=== PATIENT | female | born 1965 | race Caucasian/White ===

== ENCOUNTER 2016-07-18 11:49 | Emergency (ER) | payer OTHER ==
[2016-07-18 12:05] VITALS: BMI 21.9
[2016-07-18] MEDS ORDERED: PANTOPRAZOLE SODIUM 100 ML IVPB ONE (17:20)
[2016-07-18] MEDS ORDERED: SODIUM CHLORIDE 1,000 ML IV STA ×2 (17:20→17:21)
[2016-07-18] MEDS ORDERED: ONDANSETRON 4 MG/2 ML VIAL IVPUSH ONE (17:21)
[2016-07-18] MEDS ORDERED: PANTOPRAZOLE SODIUM 40 MG in SODIUM CHLORIDE 100 ML IVPB ONE (17:21)
[2016-07-18 17:43] LABS: BASOPHIL 0.2 % (0-2.0); EOSINOPHIL 0.2 % (0-4.5); MCH 30.2 pg (25.7-33.7); MCHC 33.9 g/dl (32.0-36.0); MEAN CELL VOLUME 89.3 fl (80-96); MEAN PLT VOLUME 7.7 fl (7.5-11.1); NEUTROPHILS 77.7 % (42.8-82.8); PLATELET COUNT 309 K/MM3 (134-434); RDW 12.6 % (11.6-15.6); WHITE BLOOD COUNT 6.5 K/mm3 (4.0-10.0)
--- NOTE | 2016-07-18 17:58 | PDOC ---
History of Present Illness - General History Source: Patient Exam Limitations: No Limitations - History of Present Illness Initial Comments: 07/18/16 17:53 50 year old female sent in by Dr. Ed Stover for, nausea, fever and chills. As per patient she was tested positive for influenza yesterday and was told to rest take NSAIDs and eat small frequent meals. Patient states has not been able to tolerate for the past 4 days eating only small bits of crackers and sips of water. Patient states is having brown watery stool immediately following by mouth intake. Patient denies headache, neck stiffness, difficulty swallowing, throat pain, chest pain, shortness of breath or palpitations. Patient states history of acid reflux and is currently on Zantac and Lopressor for hypertension. Timing/Duration: intermittent Severity: moderate Associated Symptoms: reports: cough, fever/chills, nausea/vomiting, weakness <Trudy Meza - Last Filed: 07/18/16 17:52> <Annette Moore - Last Filed: 07/18/16 20:48> - General Chief Complaint: Weakness Stated Complaint: WEAKNESS, ABD PAIN (PCP SENT) Time Seen by Provider: 07/18/16 14:59 Past History - Past Medical History Anemia: No Asthma: No Cancer: No Cardiac Disorders: No CVA: No COPD: No CHF: No Dementia: No Diabetes: No GI Disorders: Yes Disorders: No HTN: Yes Hypercholesterolemia: No Liver Disease: No Seizures: No Thyroid Disease: No - Surgical History Abdominal Surgery: No Appendectomy: No Cardiac Surgery: No Cholecystectomy: No Lung Surgery: No Neurologic Surgery: No Orthopedic Surgery: No - Psycho/Social/Smoking Cessation Hx Suicidal Ideation: No Smoking History: Never smoked Information on smoking cessation initiated: No Hx Alcohol Use: Yes Drug/Substance Use Hx: No Substance Use Type: None Hx Substance Use Treatment: No Patient Lives Alone: No Lives with/in: spouse/SO <Trudy Meza - Last Filed: 07/18/16 17:52> <Annette Moore - Last Filed: 07/18/16 20:48> - Past Medical History Allergies/Adverse Reactions: Allergies Allergy/AdvReac Type Severity Reaction Status Date / Time aspirin AdvReac Verified 07/18/16 12:05 Penicillins AdvReac Verified 07/18/16 12:05 Home Medications: Ambulatory Orders Acetaminophen W/ Codeine Liq [Tylenol W/Codeine Oral Solution -] 5 ml PO Q6H PRN #120 ml MDD 20 mLs 07/18/16 Diphenoxylate HCl/Atropine [Lomotil Tablet] 1 each PO BID PRN #4 tablet MDD 2 tabs 07/18/16 Metoprolol Tartrate [Lopressor -] 25 mg PO DAILY 07/18/16 Oseltamivir Phosphate [Tamiflu -] 75 mg PO BID #10 capsule 07/18/16 Ranitidine [Zantac -] 150 mg PO DAILY 07/18/16 Review of Systems - Review of Systems Able to Perform ROS?: Yes Constitutional: Yes: Chills, Loss of Appetite, Weakness (mild) HEENTM: No: Symptoms Reported Respiratory: Yes: Cough Cardiac (ROS): No: Symptoms Reported ABD/GI: Yes: Diarrhea, Nausea, Indigestion : No: Symptoms Reported Musculoskeletal: No: Symptoms Reported Integumentary: No: Symptoms Reported Neurological: No: Symptoms reported Endocrine: No: Symptoms Reported Hematologic/Lymphatic: No: Symptoms Reported <Trudy Meza - Last Filed: 07/18/16 17:52> *Physical Exam - Vital Signs Last Vital Signs Temp Pulse Resp BP Pulse Ox 98.3 F 100 H 18 118/76 97 07/18/16 12:01 07/18/16 12:01 07/18/16 12:01 07/18/16 12:01 07/18/16 12:01 - Physical Exam General Appearance: Yes: Nourished, Appropriately Dressed. No: Apparent Distress HEENT: positive: EOMI, AYLA. negative: Pale Conjunctivae Neck: positive: Supple Respiratory/Chest: positive: Lungs Clear, Normal Breath Sounds. negative: Respiratory Distress, Accessory Muscle Use Cardiovascular: positive: Regular Rhythm, Tachycardia. negative: Murmur Gastrointestinal/Abdominal: positive: Normal Bowel Sounds, Soft, Tenderness ( epigastric). negative: Distended Musculoskeletal: negative: CVA Tenderness Extremity: positive: Normal Capillary Refill. negative: Pedal Edema Integumentary: positive: Normal Color, Warm, Moist Neurologic: positive: Motor Strength 5/5 <Trudy Meza - Last Filed: 07/18/16 17:52> - Vital Signs Last Vital Signs Temp Pulse Resp BP Pulse Ox 98.3 F 100 H 18 118/76 97 07/18/16 12:01 07/18/16 12:01 07/18/16 12:01 07/18/16 12:01 07/18/16 12:01 <Annette Moore - Last Filed: 07/18/16 20:48> Heart Score/ECG Review - ECG Impressions Normal ECG: Yes Non-specific ST Elevation: No Ischemic Changes: No Bradycardia: No Tachycardia: Sinus Torsades kaelyn Pointes: No WPW: No Comment:: 07/18/16 19:39 Otherwise normal ECG. <Annette Moore - Last Filed: 07/18/16 20:48> ED Treatment Course - LABORATORY CBC & Chemistry Diagram: 07/18/16 17:20 07/18/16 17:20 - ADDITIONAL ORDERS Additional order review: 07/18/16 17:20 RBC 4.69 MCV 89.3 MCHC 33.9 RDW 12.6 MPV 7.7 Neutrophils % 77.7 Lymphocytes % 11.2 Monocytes % 10.7 H Eosinophils % 0.2 Basophils % 0.2 - Medications Given in the ED: ED Medications Discontinued Medications Generic Name Dose Route Start Last Admin Trade Name Freq PRN Reason Stop Dose Admin Pantoprazole Sodium 40 mg/ 100 mls @ 200 mls/hr 07/18/16 17:21 07/18/16 17:40 Sodium Chloride IVPB 07/18/16 17:50 200 mls/hr ONCE ONE Administration Ondansetron HCl 4 mg 07/18/16 17:21 07/18/16 17:40 Zofran Injection IVPUSH 07/18/16 17:22 4 mg ONCE ONE Administration <Trudy Meza - Last Filed: 07/18/16 17:52> - LABORATORY CBC & Chemistry Diagram: 07/18/16 17:20 07/18/16 17:20 - ADDITIONAL ORDERS Additional order review: Laboratory Results 07/18/16 07/18/16 07/18/16 17:30 17:20 17:20 Sodium 136 Potassium 3.7 Chloride 100 Carbon Dioxide 24 Anion Gap 12 BUN 13 D Creatinine 0.7 Creat Clearance w eGFR > 60 Random Glucose 74 Lactic Acid 1.294 Calcium 9.0 Total Bilirubin 0.5 D AST 20 D ALT 20 Alkaline Phosphatase 82 Total Protein 8.2 Albumin 4.4 Urine Color Yellow Urine Appearance Clear Urine pH 5.0 Ur Specific Section 1.026 Urine Protein 1+ H Urine Glucose (UA) Negative Urine Ketones 2+ H Urine Blood Negative Urine Nitrite Negative Urine Bilirubin Negative Urine Urobilinogen Negative Ur Leukocyte Esterase Negative 07/18/16 17:20 RBC 4.69 MCV 89.3 MCHC 33.9 RDW 12.6 MPV 7.7 Neutrophils % 77.7 Lymphocytes % 11.2 Monocytes % 10.7 H Eosinophils % 0.2 Basophils % 0.2 - Medications Given in the ED: ED Medications Discontinued Medications Generic Name Dose Route Start Last Admin Trade Name Freq PRN Reason Stop Dose Admin Pantoprazole Sodium 40 mg/ 100 mls @ 200 mls/hr 07/18/16 17:21 07/18/16 17:40 Sodium Chloride IVPB 07/18/16 17:50 200 mls/hr ONCE ONE Administration Sodium Chloride 1,000 mls @ 1,000 mls/hr 07/18/16 17:20 07/18/16 17:40 Normal Saline - IV 07/18/16 18:19 1,000 mls/hr ASDIR STA Administration Ondansetron HCl 4 mg 07/18/16 17:21 07/18/16 17:40 Zofran Injection IVPUSH 07/18/16 17:22 4 mg ONCE ONE Administration <Annette Moore - Last Filed: 07/18/16 20:48> Medical Decision Making - Medical Decision Making 07/18/16 17:08 Pt with n/v/d/fever x 4 days. Pt tested + for influenza. Pt tachycardia. Pt ordered for septic workup. Pt ordered for IVF, zofran, and protonix. 07/18/16 18:05 Laboratory Tests 07/18/16 17:20 WBC 6.5 Hgb 14.2 Hct 41.8 Neutrophils % 77.7 Monocytes % 10.7 H <Trudy Meza - Last Filed: 07/18/16 17:52> *DC/Admit/Observation/Transfer <Trudy Meza - Last Filed: 07/18/16 17:52> - Discharge Dispostion Admit: No <Annette Moore - Last Filed: 07/18/16 20:48> Diagnosis at time of Disposition: Influenza, Gastroenteritis - Discharge Dispostion Disposition: HOME Condition at time of disposition: Improved - Prescriptions Prescriptions: Diphenoxylate HCl/Atropine [Lomotil Tablet] 1 each PO BID PRN #4 tablet MDD 2 tabs PRN Reason: Diarrhea Oseltamivir Phosphate [Tamiflu -] 75 mg PO BID #10 capsule Acetaminophen W/ Codeine Liq [Tylenol W/Codeine Oral Solution -] 5 ml PO Q6H PRN #120 ml MDD 20 mLs PRN Reason: Cough - Referrals Referrals: Paula Stover MD [Primary Care Provider] - - Patient Instructions Printed Discharge Instructions: Influenza, DI for Viral Gastroenteritis -- Adult, Diarrhea Additional Instructions: Follow up with Dr. Kendra Stover. Call to schedule appointment. Take medications as prescribed. Tamiflu-flu, Tylenol with Codeine- cough (do not take extra tylenol with this syrup). Lomotil- Diarrhea. (discontinue after 48 hours if not working) . Get lots of rest, drink lots of fluids (water or gatorade). Start with clear diet then advance as tolerated. Toasted bread, Water, Gingerale, Jello, Crackers. No diary products, spicy foods, greasy foods until back to your baseline. Return if any concerns for further evaluation. Print Language: MONTENEGRIN Progress Note - Progress Note Progress Note: Patient reports feeling a little better. Patient states she was diagnosed with flu yesterday but was not given anything to help. She is requesting abx. Patient teaching done on viruses and abx. She is also requesting something for cough. Plan: d/c home. Rx: tamiflu, lomotil, tylenol with codeine qhs. <Annette Moore D - Last Filed: 07/18/16 20:48>
[2016-07-18 18:11] LABS: ALBUMIN 4.4 g/dl (3.4-5.0); ANION GAP 12 (8-16); CO2 24 mmol/L (21-32); CREATININE 0.7 mg/dL (0.55-1.02); GLUCOSE,RANDOM 74 mg/dL (74-106); SGOT/AST 20 U/L (15-37); SGPT/ALT 20 U/L (12-78)
[2016-07-18 18:14] LABS: ALK PHOS 82 U/L (45-117); BILIRUBIN,TOTAL 0.5 mg/dL (0.2-1.0); TOT PROT 8.2 g/dl (6.4-8.2)
[2016-07-18 18:26] LABS: URINE APPEARANCE CLEAR; URINE BILIRUBIN NEGATIVE (NEGATIVE); URINE BLOOD NEGATIVE (NEGATIVE); URINE COLOR YELLOW; URINE GLUCOSE (UA) NEGATIVE (NEGATIVE); URINE KETONE 2+ (NEGATIVE); URINE LEUK ESTERASE NEGATIVE (NEGATIVE); URINE NITRITE NEGATIVE (NEGATIVE); URINE UROBILINOGEN NEGATIVE E.U./dl (0.2-1.0)
[2016-07-18 19:35] LABS: URINE PROTEIN 1+ (NEGATIVE)
[2016-07-18 20:40] LABS: CALCIUM OXALATE CRYSTALS RARE /hpf (NONE SEEN); URINE BACTERIA RARE /hpf (NONE SEEN); URINE MUCUS MANY; URINE RBC 2 /hpf (0-3); URINE WBC 5 /hpf (3-5)
[2016-07-18] MEDS ORDERED: ACETAMINOPHEN 325 MG TABLET (FP) PO ONE (20:49)
[2016-07-18] MEDS ORDERED: OSELTAMIVIR PHOSPHATE 75 MG CAPSULE PO ONE (20:49)
[2016-07-18] MEDS ORDERED: DIPHENOXYLATE 2.5/ATROPINE.025 1 COMBO TABLET PO ONE (20:49)
[2016-07-18] MEDS ORDERED: ACETAMINOPHEN 325 MG TABLET (FP) ONE (21:02)
[2016-07-18] MEDS ORDERED: DIPHENOXYLATE 2.5/ATROPINE.025 1 COMBO TABLET ONE (21:02)
[2016-07-18] MEDS ORDERED: OSELTAMIVIR PHOSPHATE 75 MG CAPSULE ONE (21:03)
[2016-07-18 21:12] VITALS: BP 138/82; PULSE 102; TEMP 100.1
--- NOTE | 2016-07-19 15:30 | EKG ---
Test Reason : Blood Pressure : / mmHG Vent. Rate : 104 BPM Atrial Rate : 104 BPM P-R Int : 182 ms QRS Dur : 080 ms QT Int : 336 ms P-R-T Axes : 072 074 056 degrees QTc Int : 441 ms SINUS TACHYCARDIA POSSIBLE LEFT ATRIAL ENLARGEMENT NO PREVIOUS ECGS AVAILABLE Confirmed by COSME IRBY MD ([id number]) on 07/19/2016 3:29:51 PM Referred By: Confirmed By:COSME IRBY MD
== END 2016-07-18 21:20 | disposition home or self-care (01) ==
LOC: JER 11:49
PROC: 3E0337Z Introduction of Electrolytic and Water Balance Substance into Peripheral Vein, Percutaneous Approach (ICD-10-PCS; principal; 2016-07-18)
PROC: 3E033GC Introduction of Other Therapeutic Substance into Peripheral Vein, Percutaneous Approach (ICD-10-PCS; 2016-07-18)
PROC: 3E033GC Introduction of Other Therapeutic Substance into Peripheral Vein, Percutaneous Approach (ICD-10-PCS; 2016-07-18)
DX: J10.2 Influenza due to other identified influenza virus with gastrointestinal manifestations (principal)
CPT/HCPCS: 36415; 80053; 81003; 81015; 83605; 85025; 87040; 87086; 87186; 93005; 93010; 99285-25

== ENCOUNTER 2017-05-29 14:22 | Day surgery (SDC) | payer OTHER ==
[2017-05-27 17:10] VITALS: BMI 20.5
[2017-05-29] MEDS ORDERED: LIDOCAINE HCL/PF 2% SDV 5ML VIAL ONE (15:34)
[2017-05-29] MEDS ORDERED: PROPOFOL 20 ML ONE (15:34)
[2017-05-29] MEDS ORDERED: DEXAMETHASONE SOD PHOSPHATE 4 MG/1 ML VIAL ONE (15:34)
[2017-05-29] MEDS ORDERED: MIDAZOLAM HCL 2 MG/2 ML SINGLE DOSE VIAL ONE (15:34)
[2017-05-29] MEDS ORDERED: KETOROLAC TROMETHAMINE 30 MG/1 ML VIAL ONE (16:21)
[2017-05-29] MEDS ORDERED: ONDANSETRON 4 MG/2 ML VIAL IVPUSH PRN ×2 (16:29→16:41)
[2017-05-29] MEDS ORDERED: oxyCODONE HCL 5 MG TABLET PO PRN ×2 (16:29→16:41)
[2017-05-29] MEDS ORDERED: PROMETHAZINE HCL 25 MG/1 ML VIAL IVPUSH PRN (16:29)
[2017-05-29] MEDS ORDERED: LACTATED RINGERS SOLUTION 1,000 ML IV SCH (16:30)
--- NOTE | 2017-05-29 16:39 | HP ---
Past Medical History - Primary Care Physician PCP:: Jeancarlos Cleary - Admission Chief Complaint: postmenopausal vaginal bleeding, thicken irregular EM, r/o polyp History of Present Illness: 51 yo f with irregular vaginal spotting and lower abdominal cramps, sono thicken irregular EM, r/o polyp, admitted for hysteroscopy D&C, rba discussed History Source: Patient Limitations to Obtaining History: No Limitations - Past Medical History Cardiovascular: Yes: HTN Gastrointestinal: Yes: GERD - Past Surgical History Hx Myomectomy: No Hx Transabdominal Cerclage: No - Smoking History Smoking history: Never smoked - Alcohol/Substance Use Hx Alcohol Use: Yes (occas) - Social History Usual Living Arrangement: Yes: With Spouse History of Recent Travel: No Home Medications - Allergies Allergies/Adverse Reactions: Allergies Allergy/AdvReac Type Severity Reaction Status Date / Time aspirin AdvReac Intermediate Verified 05/27/17 17:12 Penicillins AdvReac Intermediate Verified 05/27/17 17:12 - Home Medications Home Medications: Ambulatory Orders Metoprolol Tartrate [Lopressor -] 25 mg PO HS 07/18/16 Ibuprofen [Motrin -] 600 mg PO QID #28 tablet 05/20/17 Chlordiazepoxide/Clidinium Br [Librax Capsule] 1 each PO TID 05/27/17 Omeprazole 20 mg PO DAILY 05/27/17 Review of Systems - Review of Systems Constitutional: reports: No Symptoms Eyes: reports: No Symptoms HENT: reports: No Symptoms Neck: reports: No Symptoms Cardiovascular: reports: No Symptoms Respiratory: reports: No Symptoms Gastrointestinal: reports: No Symptoms Genitourinary: reports: Vaginal Bleeding Breasts: reports: No Symptoms Reported Musculoskeletal: reports: No Symptoms Integumentary: reports: No Symptoms Neurological: reports: No Symptoms Endocrine: reports: No Symptoms Hematology/Lymphatic: reports: No Symptoms Psychiatric: reports: No Symptoms Physical Exam-CABLE TENDER Vital Signs: Vital Signs Temperature 98.1 F 05/29/17 14:48 Pulse Rate 96 H 05/29/17 14:48 Respiratory Rate 18 05/29/17 14:48 Blood Pressure 126/82 05/29/17 14:48 O2 Sat by Pulse Oximetry (%) 97 05/29/17 14:50 Constitutional: Yes: Well Nourished, No Distress, Calm Eyes: Yes: WNL, Conjunctiva Clear, EOM Intact HENT: Yes: WNL, Atraumatic, Normocephalic Neck: Yes: WNL, Supple, Trachea Midline Cardiovascular: Yes: WNL, Regular Rate and Rhythm Respiratory: Yes: WNL, Regular, CTA Bilaterally Gastrointestinal: Yes: WNL ...Rectal Exam: Yes: WNL Renal/: Yes: WNL Vaginal Exam: Yes: Normal Cervix: Yes: Normal Uterus: Yes: Normal, Other (second degree prolapse) Adnexa: Not Palpable: Left, Right Breast(s): Yes: WNL Musculoskeletal: Yes: WNL Extremities: Yes: WNL Integumentary: Yes: WNL Neurological: Yes: WNL, Alert, Oriented ...Motor Strength: WNL Psychiatric: Yes: WNL, Alert, Oriented Problem List - Problem (1) Postmenopausal bleeding Code(s): N95.0 - POSTMENOPAUSAL BLEEDING (2) Endometrial polyp Code(s): N84.0 - POLYP OF CORPUS UTERI Assessment/Plan plan hysteroscopy D&C , polypectomy
[2017-05-29] MEDS ORDERED: IBUPROFEN 600 MG TABLET (FP) PO PRN (16:41)
[2017-05-29] MEDS ORDERED: IBUPROFEN 800 MG/8 ML IJ IVPB PRN (16:41)
[2017-05-29] MEDS ORDERED: ELECTROLYTE-148 SOLN 1,000 ML IV SCH (16:45)
[2017-05-29 16:56] VITALS: TEMP 98.8
[2017-05-29 18:21] VITALS: BP 105/66; PULSE 77
--- NOTE | 2017-05-30 10:12 | OP ---
DATE OF OPERATION: 05/29/2017 PREOPERATIVE DIAGNOSES: Postmenopausal bleeding. Thickened endometrium. POSTOPERATIVE DIAGNOSES: Postmenopausal bleeding. Thickened endometrium. PROCEDURES: Hysteroscopy. Dilation and curettage. Polypectomy. SURGEON: Jeancarlos Cleary MD ANESTHESIA: General. ANESTHESIOLOGIST: Ulises Buchanan MD ESTIMATED BLOOD LOSS: 50 mL. OPERATIVE REPORT: The patient was taken to the operating room and had adequate general anesthesia in dorsal lithotomy position. Examination under anesthesia revealed external genitalia to be normal, vagina was normal. There was a second-degree uterine prolapse. The uterus was normal size. Adnexa no masses palpable. Also, a second-degree cystocele was seen. Then, with the weighted speculum in the vagina, the anterior lip of the cervix was grasped with a single-tooth tenaculum. The cervix was slightly dilated with the Hegar dilator and sounded to 6 cm. Then, the hysteroscope was introduced. Visualization of the endocervical canal appeared to be normal. The lower uterine segment was irregular with several small polyps and both cornual regions were identified. No polyp was seen in the upper part of the uterus. The fundal portion of the uterus appeared to be atrophic. Then, hysteroscope was withdrawn. Cervix was slightly dilated and then the uterine cavity was curetted. Patient tolerated the procedure well. Left the OR in good condition. JEANCARLOS CLEARY M.D. [id number]
--- NOTE | 2017-06-02 11:12 | PATH ---
Surgical Pathology Report Patient Name: HALLIE STORY [facility]. Rec. #: [id number] /Age/Gender: 1965 (Age: 51) / F Account: [id number] Location: [facility] Taken: 05/29/2017 Received: 05/30/2017 Reported: 06/02/2017 Physicians: Jeancarlos Cleary M.D. Specimen(s) Received ENDOMETRIAL CURETTINGS AND POLYP Clinical History Preoperative diagnosis: Endometrial polyp, postmenopausal bleeding Postoperative diagnosis: Same Final Diagnosis ENDOMETRIUM, CURETTING AND POLYPECTOMY: INACTIVE ENDOMETRIUM. NO ENDOMETRIAL HYPERPLASIA OR CARCINOMA IDENTIFIED. Electronically Signed Darryl Kahn M.D. Gross Description Received in formalin labeled "endometrial curetting/polyp," is a 1.5 x 1.2 x 0.3 cm aggregate of bhat-brown soft tissue fragments admixed with blood-tinged mucous. The formalin is filtered and the specimen is entirely submitted in one cassette. 05/30/201705/30/2017
== END 2017-05-29 18:21 | disposition home or self-care (01) ==
LOC: JASU-SURG 14:22
PROVIDERS: ATTEND Obstetrics & Gynecology
PROC: 0UB98ZX Excision of Uterus, Via Natural or Artificial Opening Endoscopic, Diagnostic (ICD-10-PCS; principal; 2017-05-29 16:00)
PROC: 0UDB7ZX Extraction of Endometrium, Via Natural or Artificial Opening, Diagnostic (ICD-10-PCS; 2017-05-29 16:00)
DX: N95.0 Postmenopausal bleeding (principal); N84.0 Polyp of corpus uteri
CPT/HCPCS: 84703; 88305-TC; 94760

== ENCOUNTER 2025-01-29 23:14 | Emergency (ER) | payer OTHER ==
[2025-01-29 23:38] VITALS: BP 149/66; PULSE 88; RESP 18; TEMP 98.1; BMI 19.8
[2025-01-30 00:46] LABS: ABSOLUTE IMMATURE GRANULOCYTES 0.03 x10^3/uL (0.0-0.031); BASOPHILS # 0.03 x10^3/uL (0.01-0.08); EOSINOPHIL % 2.0 % (0.7-5.8); EOSINOPHILS # 0.16 x10^3/uL (0.04-0.36); MCHC 31.5 g/dl (32.2-35.5); MEAN CELL VOLUME 94.4 fl (79.4-94.8); MEAN PLT VOLUME 9.8 fl (9.4-12.3); MONOCYTE # 0.48 x10^3/uL (0.24-0.86); MONOCYTE % 6.0 % (4.7-12.5); RDW 12.1 % (12.3-16.6)
[2025-01-30 01:19] LABS: CO2 28.0 mmol/L (21-32)
[2025-01-30 01:20] LABS: GLUCOSE,RANDOM 101.0 mg/dL (74-106)
[2025-01-30 01:22] LABS: CREATININE 0.6 mg/dL (0.55-1.3); SGOT/AST 16.0 U/L (15-37); SGPT/ALT 21.0 U/L (13-61)
[2025-01-30 01:24] LABS: TOT PROT 7.4 g/dl (6.4-8.2)
[2025-01-30 01:25] LABS: ALK PHOS 103.0 U/L (45-117)
[2025-01-30 02:12] LABS: HCV DIAGNOSTIC IN-HOUSE W/RFLX NON-REACTIVE (NONREACTIVE); HIV INTERPRETATION NEGATIVE (NEGATIVE)
[2025-01-30] MEDS ORDERED: IBUPROFEN 600 MG TABLET (FP) PO ONE (02:29)
[2025-01-30] MEDS: IBUPROFEN 600 MG TABLET (FP) PO ONE (02:33)
== END 2025-01-30 02:34 | disposition home or self-care (01) ==
LOC: JER 23:14
DX: R07.9 Chest pain, unspecified (principal)
CPT/HCPCS: 36415; 71045-TC-FY; 80053; 83735; 84484; 85025; 86803; 87389; 93005; 93010; 99285-25